=== PATIENT | female | born 1985 | race Two or more races ===

== ENCOUNTER 2022-04-11 08:49 | Outpatient (CLI) | payer OTHER | END 2022-04-11 09:50 | disposition home or self-care (01) | LOC: PRENATAL 08:49 | PROVIDERS: ATTEND Obstetrics & Gynecology Maternal & Fetal Medicine | DX: O09.529 Supervision of elderly multigravida, unspecified trimester (principal); Z3A.18 18 weeks gestation of pregnancy; O36.80X0 Pregnancy with inconclusive fetal viability, not applicable or unspecified ==

== ENCOUNTER 2022-04-24 08:35 | Outpatient (CLI) | payer OTHER | END 2022-04-24 09:50 | disposition home or self-care (01) | LOC: PRENATAL 08:35 | PROVIDERS: ATTEND Obstetrics & Gynecology Maternal & Fetal Medicine | DX: Z31.69 Encounter for other general counseling and advice on procreation (principal) ==

== ENCOUNTER 2022-08-28 11:04 | Inpatient (IN) | payer OTHER ==
[~2022-08-28] VITALS: Ht 152.4 cm; Wt 2.7 kg
[~2022-08-28 11:04] MED LIST: PRENATAL + DHA1 EAC1 PO
[2022-09-04] MEDS ORDERED: PRENATAL + DHA1 EAC1 PO (06:41)
== END 2022-09-07 11:58 | disposition home or self-care (01) | DRG 785 ==
LOC: O/R 09-04 05:37 → OB/GYN 09-04 05:37
PROVIDERS: ADMIT Obstetrics & Gynecology; ATTEND Obstetrics & Gynecology
PROC: 0UB70ZZ Excision of Bilateral Fallopian Tubes, Open Approach (ICD-10-PCS; 2022-09-04)
PROC: 4A1HXCZ Monitoring of Products of Conception, Cardiac Rate, External Approach (ICD-10-PCS; 2022-09-04)
PROC: 10D00Z1 Extraction of Products of Conception, Low, Open Approach (ICD-10-PCS; principal; 2022-09-04 15:00)
DX: O34.211 Maternal care for low transverse scar from previous cesarean delivery (principal); Z3A.39 39 weeks gestation of pregnancy; Z37.0 Single live birth; Z20.822 Contact with and (suspected) exposure to COVID-19; Z30.2 Encounter for sterilization